=== PATIENT | male | born 1980 | race Caucasian/White ===

== ENCOUNTER 2017-10-10 14:31 | Inpatient (IN) ==
[2017-10-10] MEDS ORDERED: *HR* LORazepam 1 MG TABLET PO PRN (16:19)
[2017-10-10] MEDS ORDERED: Haloperidol Lactate 5 MG/ML VIAL IM PRN (16:19)
[2017-10-10] MEDS ORDERED: Mag Hydrox/Al Hydrox/Simeth 30 ML UDC PO PRN (16:19)
[2017-10-10] MEDS ORDERED: *HR* LORazepam 2 MG/ML VIAL IM PRN (16:19)
[2017-10-10] MEDS: Acetaminophen 325 MG TABLET PO PRN (18:27)
[2017-10-10] MEDS: traZODone 50 MG TABLET PO PRN (22:03)
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
[2017-10-11] MEDS: traZODone 50 MG TABLET PO PRN (23:08)
[2017-10-11] MEDS: hydrOXYzine pamoate 25 MG CAPSULE PO PRN (23:08)
--- NOTE | 2017-10-12 11:57 | Psychiatry Progress Note ---
Date of Encounter: 10/12/17 Time of Encounter: 11:30 Subjective Interval history: Patient is here for follow-up. Case discussed was nursing staff. Patient reports having headache, hearing voices without much details. Otherwise he is cooperative attending groups. He reports multiple somatic complaints and has been advised on seeking care for them including getting when necessary medication for headache. He denies any suicidal or homicidal ideation. 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 Benefits and side effects were discussed with the patient, he is agreeable to start. Risks, benefits, side effects, alternatives discussed w/pt: Yes Patient agreeable to treatment: Yes Consult Discharge Plan - Plan Referrals: [facility] [Other] (You are going into residential substance abuse treatment at [facility]. [facility] staff will arrange any follow- up physical and behavioral health appointments after you are admitted into the program.) Psychiatry Exam - Constitutional Vitals: Temp Pulse Resp BP 97.6 F 54 18 124/68 10/12/17 09:00 10/12/17 09:00 10/12/17 09:00 10/12/17 09:00 General appearance: age & developmentally appropriate, well-groomed, well- nourished, thin - Musculoskeletal Gait: normal Station: relaxed Strength & Tone: normal for patient - Psychiatric Patient Orientation: Yes Person, Yes Time, Yes Place Level of alertness: Alert Behavior: calm, cooperative, anxious, withdrawn Psychomotor activity: Slowed Eye Contact: Maintains Eye Contact Mood Description: Euthymic/stable, Anxious Affect description: congruent with mood, constricted Speech Volume: Normal Speech pattern: normal rate, normal rhythm, normal tone, fluent, spontaneous Language & Vocabulary: consistent with education Thought Process: Linear, Goal Oriented Thought Content: No Suicidal ideation, No Homicidal ideation, No Overt delusions Perceptual Disturbances: Yes Auditory hallucinations, No Visual hallucinations Attention Span Ability: Capable of Focused Attention Memory Description: Grossly Intact Patient Reliability: Reliable Historian Fund of knowledge: Yes abstraction ability, Yes aware of current events Intelligence Estimate: Average Judgment: Limited Insight: Partial
[2017-10-12] MEDS: traZODone 50 MG TABLET PO PRN (22:04)
[2017-10-12] MEDS: OLANZapine 5 MG TAB.RAPDIS PO SCH (22:04)
[2017-10-12] MEDS: hydrOXYzine pamoate 25 MG CAPSULE PO PRN (22:05)
[2017-10-13] MEDS: hydrOXYzine pamoate 25 MG CAPSULE PO PRN ×3 (08:30→21:40)
--- NOTE | 2017-10-13 11:24 | Psychiatry Progress Note ---
Date of Encounter: 10/13/17 Time of Encounter: 10:30 Subjective Interval history: Patient seen for follow-up. Case discussed was nursing staff. Patient tolerated new medication Zyprexa and reports no voices or auditory hallucination , he was able to sleep 6 hours. He attended groups and has been compliant and interacting with his peers and staff. He is occupied with multiple somatic complaints and repeatedly asking questions and getting advice and answers for the same question for example asking for headache he was advised to get when necessary medication for headache and if headache persists for extended time after discharge from the hospital that he needed to seek medical evaluation for his headache same instruction was given yesterday. He denied any suicidal ideation or auditory hallucinations, he denied any homicidal ideation. 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 [facility] staff will arrange any follow- up physical and behavioral health appointments after you are admitted into the program.) Psychiatry Exam - Constitutional Vitals: Temp Pulse Resp BP 97.5 F L 61 18 111/76 10/13/17 09:00 10/13/17 09:00 10/13/17 09:00 10/13/17 09:00 General appearance: age & developmentally appropriate, well-groomed, well- nourished, thin - Musculoskeletal Gait: normal Station: relaxed Strength & Tone: normal for patient - Psychiatric Patient Orientation: Yes Person, Yes Time, Yes Place Level of alertness: Alert Behavior: calm, cooperative, anxious Psychomotor activity: Normal Eye Contact: Fleeting Contact Mood Description: Euthymic/stable, Anxious Affect description: congruent with mood, constricted Speech Volume: Normal Speech pattern: normal rate, normal rhythm, normal tone, fluent, spontaneous Language & Vocabulary: consistent with education Thought Process: Linear, Goal Oriented Thought Content: No Suicidal ideation, No Homicidal ideation, No Overt delusions , Yes Preoccupation Perceptual Disturbances: No Auditory hallucinations, No Visual hallucinations Attention Span Ability: Capable of Focused Attention Memory Description: Grossly Intact Patient Reliability: Questionable Historian Fund of knowledge: Yes abstraction ability, Yes aware of current events Intelligence Estimate: Average Judgment: Limited Insight: Partial
[2017-10-13] MEDS: Acetaminophen 325 MG TABLET PO PRN (18:52)
[2017-10-13] MEDS: MOM Conc 10 ML UD.LIQ PO PRN (18:54)
[2017-10-13] MEDS: traZODone 50 MG TABLET PO PRN (21:38)
[2017-10-13] MEDS: OLANZapine 5 MG TAB.RAPDIS PO SCH (21:38)
[2017-10-14] MEDS: Acetaminophen 325 MG TABLET PO PRN (06:18)
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
[2017-10-14] MEDS: hydrOXYzine pamoate 25 MG CAPSULE PO PRN ×2 (14:47→21:57)
[2017-10-14] MEDS ORDERED: OLANZapine 5 MG TAB.RAPDIS PO SCH (18:00)
[2017-10-14] MEDS: OLANZapine 10 MG TAB.RAPDIS PO SCH (21:57)
[2017-10-14] MEDS: traZODone 50 MG TABLET PO PRN (21:57)
[2017-10-15] MEDS: hydrOXYzine pamoate 25 MG CAPSULE PO PRN ×2 (09:30→20:09)
[2017-10-15] MEDS ORDERED: OLANZapine 10 MG TAB.RAPDIS PO SCH (10:49)
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
[2017-10-16] MEDS: traZODone 50 MG TABLET PO PRN (02:07)
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
[2017-10-16] MEDS: hydrOXYzine pamoate 25 MG CAPSULE PO PRN (14:10)
[2017-10-16] MEDS: OLANZapine 10 MG TAB.RAPDIS PO SCH (20:05)
[2017-10-16] MEDS: Melatonin 3 MG TABLET PO SCH ×2 (22:11→22:21)
[2017-10-17] MEDS: hydrOXYzine pamoate 25 MG CAPSULE PO PRN (00:39)
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
[2017-10-17] MEDS: OLANZapine 10 MG TAB.RAPDIS PO SCH ×3 (20:58→22:20)
[2017-10-17] MEDS: Melatonin 3 MG TABLET PO SCH (20:59)
[2017-10-18] MEDS: hydrOXYzine pamoate 25 MG CAPSULE PO PRN ×3 (00:12→14:05)
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
[2017-10-18] MEDS: Melatonin 3 MG TABLET PO SCH (21:19)
[2017-10-18] MEDS: OLANZapine 10 MG TAB.RAPDIS PO SCH (21:20)
[2017-10-19] MEDS: hydrOXYzine pamoate 25 MG CAPSULE PO PRN ×2 (03:13→15:50)
--- NOTE | 2017-10-19 14:02 | Psychiatry Progress Note ---
Date of Encounter: 10/19/17 Time of Encounter: 11:30 Subjective Interval history: Patient discussed on rounds with mulltidisplinary treatment and nursing notes reviewed and noted. There were no behavioral issues or incident reported overnight. Patient seen in the day room and was calm and cooperative. He reported minimal improvement his symptoms. He continue to endorse AH though he reported significant improvement. . Patient also endorse worsening anxiety symptoms with difficulties in focusing. He is compliant with his medications and denied any side effects. . He denied prior trial with medications before his admission to the hospital.. He is sleeping and eating well. He denied any homicidal thoughts towards the mother and acknowledged his behavior were substance related. On review of symptoms, he denied other mood or psychotic symptoms including VH/HI/SI Review of Systems Constitutional: Denies: fever, chills, weakness, weight change Eyes: Denies: eye pain, vision change Ears, Nose, Throat: Denies: ear pain, throat pain, dental pain, hearing loss, congestion Cardiovascular: Denies: chest pain, palpitations, dyspnea on exertion Respiratory: Denies: cough, dyspnea, wheezes Gastrointestinal: Denies: abdominal pain, nausea, vomiting, diarrhea, constipation Musculoskeletal: Denies: joint swelling, joint pain Neurological: Denies: headache, weakness, numbness, memory loss Psychiatric: Reports: depression, anxiety, abnormal sleep pattern, auditory hallucinations Results - Vital Signs Vital Signs: Temp Pulse Resp BP Pulse Ox 98.2 F 90 16 106/68 98 10/19/17 09:00 10/19/17 09:00 10/19/17 09:00 10/19/17 09:00 10/16/17 19:49 Assessment and Plan (1) Polysubstance abuse Current visit: No Status: Acute (2) Suicidal ideation Current visit: No Status: Acute (3) Acute anxiety Current visit: No Status: Acute (4) Auditory hallucination Current visit: No Status: Acute Consult Discharge Plan - Plan Referrals: [facility] [Other] (You are going into residential substance abuse treatment at [facility]. [facility] staff will arrange any follow- up physical and behavioral health appointments after you are admitted into the program.) Psychiatry Exam - Constitutional Vitals: Temp Pulse Resp BP Pulse Ox 98.2 F 90 16 106/68 98 10/19/17 09:00 10/19/17 09:00 10/19/17 09:00 10/19/17 09:00 10/16/17 19:49 General appearance: age & developmentally appropriate, unkempt - Musculoskeletal Gait: slow - Psychiatric Patient Orientation: Yes Person, Yes Place, Yes Circumstance Level of alertness: Alert Behavior: calm, cooperative Psychomotor activity: Slowed Eye Contact: Maintains Eye Contact Mood Description: Euthymic/stable Affect description: congruent with mood Speech Volume: Soft/Quiet Speech pattern: coherent, slowed Language & Vocabulary: consistent with education Thought Process: Logical Thought Content: No Suicidal ideation, No Homicidal ideation, No Overt delusions Perceptual Disturbances: Yes Auditory hallucinations, Yes Visual hallucinations Attention Span Ability: Unable to Sustain Attention Memory Description: Immediate Impaired Patient Reliability: Reliable Historian Fund of knowledge: Yes average Intelligence Estimate: Average
[2017-10-19] MEDS: Melatonin 3 MG TABLET PO SCH (21:06)
[2017-10-19] MEDS: OLANZapine 10 MG TAB.RAPDIS PO SCH (21:07)
[2017-10-20] MEDS: hydrOXYzine pamoate 25 MG CAPSULE PO PRN ×3 (05:01→18:29)
--- NOTE | 2017-10-20 12:39 | Psychiatry Progress Note ---
Date of Encounter: 10/20/17 Time of Encounter: 12:29 Subjective Interval history: Patient discussed on rounds with mulltidisciplinary treatment and nursing notes reviewed and noted. There were no behavioral issues or incident reported overnight. Patient seen in the day room and was calm and cooperative. He reported minimal improvement his symptoms. He reported improvement in his anxiety with increase dose of Vistaril to 50mg prn. Reported he still hearing voices 'here and there'' but the intensity is much better. He is compliant with his medications and reported increase restlessness with it. He is sleeping and eating well. On review of symptoms, he denied other mood or psychotic symptoms including VH/SI/HI. Review of Systems Constitutional: Denies: fever, chills, weakness, weight change Eyes: Denies: eye pain, vision change Ears, Nose, Throat: Denies: ear pain, throat pain, dental pain, hearing loss, congestion Cardiovascular: Denies: chest pain, palpitations, dyspnea on exertion Respiratory: Denies: cough, dyspnea, wheezes Gastrointestinal: Denies: abdominal pain, nausea, vomiting, diarrhea, constipation Musculoskeletal: Denies: joint swelling, joint pain Neurological: Denies: headache, weakness, numbness, memory loss Psychiatric: Reports: anxiety, abnormal sleep pattern, auditory hallucinations Results - Vital Signs Vital Signs: Temp Pulse Resp BP Pulse Ox 97.7 F 96 18 123/83 98 10/20/17 09:00 10/20/17 09:00 10/20/17 09:00 10/20/17 09:00 10/16/17 19:49 Assessment and Plan (1) Polysubstance abuse Current visit: No Status: Acute (2) Suicidal ideation Current visit: No Status: Acute (3) Acute anxiety Current visit: No Status: Acute (4) Auditory hallucination Current visit: No Status: Acute Consult Discharge Plan - Plan Referrals: [facility] [Other] (You are going into residential substance abuse treatment at [facility]. [facility] staff will arrange any follow- up physical and behavioral health appointments after you are admitted into the program.) Psychiatry Exam - Constitutional Vitals: Temp Pulse Resp BP Pulse Ox 97.7 F 96 18 123/83 98 10/20/17 09:00 10/20/17 09:00 10/20/17 09:00 10/20/17 09:00 10/16/17 19:49 General appearance: unkempt - Musculoskeletal Gait: normal - Psychiatric Patient Orientation: Yes Time, Yes Place, Yes Circumstance Level of alertness: Alert Behavior: calm, cooperative Psychomotor activity: Normal Eye Contact: Maintains Eye Contact Mood Description: Euthymic/stable Affect description: congruent with mood Speech Volume: Normal Speech pattern: normal rate, normal rhythm, normal tone Language & Vocabulary: consistent with education Thought Process: Logical, Goal Oriented Thought Content: Yes Intact Perceptual Disturbances: Yes Auditory hallucinations Attention Span Ability: Capable of Focused Attention Memory Description: Grossly Intact Patient Reliability: Reliable Historian Fund of knowledge: Yes average Intelligence Estimate: Average Judgment: Limited Insight: Partial
[2017-10-20] MEDS: Melatonin 3 MG TABLET PO SCH (21:06)
[2017-10-20] MEDS: OLANZapine 10 MG TAB.RAPDIS PO SCH (21:07)
[2017-10-21] MEDS: hydrOXYzine pamoate 25 MG CAPSULE PO PRN ×3 (03:25→21:45)
[2017-10-21 08:19] LABS: Chol/HDL Ratio 3.3 (0-4.9)
--- NOTE | 2017-10-21 12:21 | Psychiatry Progress Note ---
Date of Encounter: 10/21/17 Time of Encounter: 11:45 Subjective Interval history: Patient seen today , chart reviewed and case d/w treatment team. h/o substance use and psychosis and affective s/s related to substance use. h/o non compliance and relapses secondary to that. I would like to say i am pretty good but i am not. i still voices and medicine helping very little, i am curious if we can do something. taking prn medications daily. sleep is not so good , i am up and down all night long , 2-3 hrs . moods have been up and down , suicidal thoughts are there sometimes and no plan. all this medicine doing nothing i feel. will add depakote 250 mg bid, lipid panel done today and has high cholesterol , will get hga1c patient agreed with plan denies side effects. Review of Systems Psychiatric: Reports: anxiety, abnormal sleep pattern, auditory hallucinations Results - Vital Signs Vital Signs: Temp Pulse Resp BP Pulse Ox 97.5 F L 72 18 113/74 98 10/21/17 09:00 10/21/17 09:00 10/21/17 09:00 10/21/17 09:00 10/16/17 19:49 - Labs Labs: Laboratory Results - last 24 hr 10/21/17 07:39 Glucose 88 Triglycerides 98 Cholesterol 231 H LDL Cholesterol, Calc 142 H VLDL Cholesterol, Calc 20 HDL Cholesterol 69 H Cholesterol/HDL Ratio 3.3 Assessment and Plan (1) Bipolar disorder, unspecified Current visit: Yes Status: Acute Plan: Continue hospitalization, Close observation, Suicide Precautions per unit protocol, Encourage participation in unit milieu, Group Therapy, Monitor sleep, Monitor appetite, Family/Supportive other meeting Risks, benefits, side effects, alternatives discussed w/pt: Yes Patient agreeable to treatment: Yes Qualifiers: Active/Remission status: currently active Current bipolar episode type: mixed Current episode severity: moderate Qualified Code(s): F31.62 - Bipolar disorder, current episode mixed, moderate (2) Suicidal ideation Current visit: No Status: Acute Plan: Continue hospitalization, Close observation, Suicide Precautions per unit protocol, Encourage participation in unit milieu, Group Therapy, Monitor sleep, Monitor appetite, Family/Supportive other meeting Risks, benefits, side effects, alternatives discussed w/pt: Yes Patient agreeable to treatment: Yes (3) 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. [facility] staff will arrange any follow- up physical and behavioral health appointments after you are admitted into the program.) Psychiatry Exam - Constitutional Vitals: Temp Pulse Resp BP Pulse Ox 97.5 F L 72 18 113/74 98 10/21/17 09:00 10/21/17 09:00 10/21/17 09:00 10/21/17 09:00 10/16/17 19:49 General appearance: age & developmentally appropriate - Musculoskeletal Gait: normal Station: other Strength & Tone: normal for patient - Psychiatric Patient Orientation: Yes Person, Yes Time, Yes Place Level of alertness: Alert Behavior: cooperative Psychomotor activity: Normal Eye Contact: Maintains Eye Contact Mood Description: Depressed, Anxious Affect description: congruent with mood Speech Volume: Normal Speech pattern: coherent Language & Vocabulary: consistent with education Thought Process: Circumstantial, Racing Thought Content: Yes Paranoid delusion Perceptual Disturbances: Yes Auditory hallucinations Attention Span Ability: Unable to Sustain Attention Memory Description: Grossly Intact Patient Reliability: Reliable Historian Fund of knowledge: Yes average Intelligence Estimate: Average Judgment: Limited Insight: Partial
[2017-10-21 14:54] LABS: Estimated Average Glucose 114 mg/dl; Hemoglobin A1C 5.6 %
[2017-10-21] MEDS: OLANZapine 10 MG TAB.RAPDIS PO SCH (21:11)
[2017-10-21] MEDS: Melatonin 3 MG TABLET PO SCH (21:11)
[2017-10-21] MEDS: Divalproex (12 HR) 250 MG TABLET PO SCH (21:11)
[2017-10-22] MEDS: Divalproex (12 HR) 250 MG TABLET PO SCH ×2 (08:45→21:22)
--- NOTE | 2017-10-22 10:42 | Psychiatry Progress Note ---
Date of Encounter: 10/22/17 Time of Encounter: 10:15 Subjective Interval history: Patient seen today, case d/w treatment team , mostly in his room and reading bible. I got some sleep last night , feeling voices are there but lesser in frequency and not commanding. feeling depress and anxious at same time as per him , has been taking vistaril prn. still remains depress, paranoid and aud. hallucination ,and increase anxiety. denies suicidal ideation , no hi. will add to treatment plan buspar 5 mg tid, patient agreed with plan. Review of Systems Psychiatric: Reports: anxiety, abnormal sleep pattern, auditory hallucinations Results - Vital Signs Vital Signs: Temp Pulse Resp BP Pulse Ox 97.4 F L 84 16 110/76 98 10/22/17 09:00 10/22/17 09:00 10/22/17 09:00 10/22/17 09:00 10/16/17 19:49 - Labs Labs: Laboratory Results - last 24 hr 10/21/17 13:42 Est Mean Plasma Glucose 114 Hemoglobin A1c 5.6 Assessment and Plan (1) Bipolar disorder, unspecified Current visit: Yes Status: Acute Risks, benefits, side effects, alternatives discussed w/pt: Yes Patient agreeable to treatment: Yes Qualifiers: Active/Remission status: currently active Current bipolar episode type: mixed Current episode severity: moderate Qualified Code(s): F31.62 - Bipolar disorder, current episode mixed, moderate (2) Suicidal ideation Current visit: No Status: Acute Risks, benefits, side effects, alternatives discussed w/pt: Yes Patient agreeable to treatment: Yes (3) 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 [facility] staff will arrange any follow- up physical and behavioral health appointments after you are admitted into the program.) Psychiatry Exam - Constitutional Vitals: Temp Pulse Resp BP Pulse Ox 97.4 F L 84 16 110/76 98 10/22/17 09:00 10/22/17 09:00 10/22/17 09:00 10/22/17 09:00 10/16/17 19:49 General appearance: age & developmentally appropriate - Musculoskeletal Gait: normal Station: other Strength & Tone: normal for patient - Psychiatric Patient Orientation: Yes Person, Yes Time, Yes Place Level of alertness: Alert Behavior: cooperative, nervous, anxious Psychomotor activity: Normal Eye Contact: Maintains Eye Contact Mood Description: Depressed, Anxious Affect description: congruent with mood Speech Volume: Normal Speech pattern: normal rate, normal rhythm, normal tone, fluent, spontaneous Language & Vocabulary: consistent with education Thought Process: Racing Thought Content: Yes Paranoid delusion, Yes Guilt Perceptual Disturbances: Yes Auditory hallucinations Attention Span Ability: Capable of Focused Attention Memory Description: Grossly Intact Patient Reliability: Reliable Historian Fund of knowledge: Yes abstraction ability, Yes aware of current events Intelligence Estimate: Average Judgment: Fair Insight: Partial
[2017-10-22] MEDS: OLANZapine 10 MG TAB.RAPDIS PO SCH (21:21)
[2017-10-22] MEDS: Melatonin 3 MG TABLET PO SCH (21:22)
[2017-10-22] MEDS: hydrOXYzine pamoate 25 MG CAPSULE PO PRN (23:49)
[2017-10-23] MEDS: Divalproex (12 HR) 250 MG TABLET PO SCH (09:06)
--- NOTE | 2017-10-23 11:54 | Psychiatry Progress Note ---
Date of Encounter: 10/23/17 Time of Encounter: 11:35 Subjective Interval history: Patient seen today , case d/w treatment team , patient did not sleep last night and had been pacing hallway and given prn medications which also did not help him much. at present feeling tired and feels down and paranoid , he states and. hallucinations are not as frequent . he still has some agitation. he denies any side effects , some dizziness in morning but has not been sleeping , his apetite is improving and he is compliant. he has h/o non compliance and education given. he still has cravings and plan is once stable to transfer to rehab inpatient. will dc doxepin 50 mg hs and start remeron 15 mg hs, also increase depakote to 500 mg bid and get levels. Review of Systems Psychiatric: Reports: anxiety, abnormal sleep pattern, auditory hallucinations Results - Vital Signs Vital Signs: Temp Pulse Resp BP Pulse Ox 98.7 F 88 16 112/73 98 10/23/17 09:00 10/23/17 09:00 10/23/17 09:00 10/23/17 09:00 10/16/17 19:49 Assessment and Plan (1) Bipolar disorder, unspecified Current visit: Yes Status: Acute Risks, benefits, side effects, alternatives discussed w/pt: Yes Patient agreeable to treatment: Yes Qualifiers: Active/Remission status: currently active Current bipolar episode type: mixed Current episode severity: moderate Qualified Code(s): F31.62 - Bipolar disorder, current episode mixed, moderate (2) Suicidal ideation Current visit: No Status: Acute Risks, benefits, side effects, alternatives discussed w/pt: Yes Patient agreeable to treatment: Yes (3) 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 [facility] staff will arrange any follow- up physical and behavioral health appointments after you are admitted into the program.) Psychiatry Exam - Constitutional Vitals: Temp Pulse Resp BP Pulse Ox 98.7 F 88 16 112/73 98 10/23/17 09:00 10/23/17 09:00 10/23/17 09:00 10/23/17 09:00 10/16/17 19:49 General appearance: age & developmentally appropriate - Musculoskeletal Gait: normal Station: relaxed Strength & Tone: normal for patient - Psychiatric Patient Orientation: Yes Person, Yes Time, Yes Place Level of alertness: Alert Behavior: cooperative, anxious Psychomotor activity: Normal Eye Contact: Minimal Contact Mood Description: Depressed, Anxious Affect description: congruent with mood Speech Volume: Soft/Quiet Speech pattern: coherent, slowed Language & Vocabulary: consistent with education Thought Process: Linear, Goal Oriented Thought Content: Yes Paranoid delusion Perceptual Disturbances: Yes Auditory hallucinations Attention Span Ability: Capable of Focused Attention Memory Description: Grossly Intact Patient Reliability: Reliable Historian Fund of knowledge: Yes abstraction ability, Yes aware of current events Intelligence Estimate: Average Judgment: Limited Insight: Partial
[2017-10-23] MEDS: Divalproex (12 HR) 500 MG TABLET PO SCH (21:36)
[2017-10-23] MEDS: Mirtazapine 15 MG TABLET PO SCH (21:36)
[2017-10-23] MEDS: Melatonin 3 MG TABLET PO SCH (21:36)
[2017-10-23] MEDS: OLANZapine 10 MG TAB.RAPDIS PO SCH (21:36)
[2017-10-24] MEDS: Divalproex (12 HR) 500 MG TABLET PO SCH ×2 (08:11→20:19)
--- NOTE | 2017-10-24 10:54 | Psychiatry Progress Note ---
Date of Encounter: 10/24/17 Time of Encounter: 10:45 Subjective Interval history: Patient seen today , case d/w treatment team . States doing better today , voices are not bothering him , paranoia still there , feels depress but not suicidal , not hopeless any more. he slept last night 5 hrs, getting better. anxiety is still high denies side effects , except constipation , rec to take prn milk of magnesia. start discharge planning. patient is homeless. Review of Systems Psychiatric: Reports: anxiety, abnormal sleep pattern, auditory hallucinations Results - Vital Signs Vital Signs: Temp Pulse Resp BP Pulse Ox 98.0 F 87 16 125/77 98 10/23/17 21:00 10/23/17 21:00 10/23/17 21:00 10/23/17 21:00 10/16/17 19:49 - Labs Labs: Laboratory Results - last 24 hr 10/24/17 07:30 Valproic Acid 58 Assessment and Plan (1) Bipolar disorder, unspecified Current visit: Yes Status: Acute Risks, benefits, side effects, alternatives discussed w/pt: Yes Patient agreeable to treatment: Yes Qualifiers: Active/Remission status: currently active Current bipolar episode type: mixed Current episode severity: moderate Qualified Code(s): F31.62 - Bipolar disorder, current episode mixed, moderate (2) Suicidal ideation Current visit: No Status: Acute Risks, benefits, side effects, alternatives discussed w/pt: Yes Patient agreeable to treatment: Yes (3) 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 [facility] staff will arrange any follow- up physical and behavioral health appointments after you are admitted into the program.) Psychiatry Exam - Constitutional Vitals: Temp Pulse Resp BP Pulse Ox 98.0 F 87 16 125/77 98 10/23/17 21:00 10/23/17 21:00 10/23/17 21:00 10/23/17 21:00 10/16/17 19:49 General appearance: age & developmentally appropriate, well-groomed, well- nourished - Musculoskeletal Gait: normal Station: relaxed Strength & Tone: normal for patient - Psychiatric Patient Orientation: Yes Person, Yes Time, Yes Place Level of alertness: Alert Behavior: anxious, restless Psychomotor activity: Normal Eye Contact: Maintains Eye Contact Mood Description: Depressed, Anxious Affect description: congruent with mood Speech Volume: Normal Speech pattern: coherent Language & Vocabulary: consistent with education Thought Content: Yes Paranoid delusion Perceptual Disturbances: Yes Auditory hallucinations Attention Span Ability: Capable of Focused Attention Memory Description: Grossly Intact Patient Reliability: Reliable Historian Fund of knowledge: Yes abstraction ability, Yes aware of current events Intelligence Estimate: Average Judgment: Limited Insight: Partial
[2017-10-24] MEDS: MOM Conc 10 ML UD.LIQ PO PRN (14:09)
[2017-10-24] MEDS: Mirtazapine 15 MG TABLET PO SCH (20:18)
[2017-10-24] MEDS: Melatonin 3 MG TABLET PO SCH (20:18)
[2017-10-24] MEDS: OLANZapine 10 MG TAB.RAPDIS PO SCH (20:20)
[2017-10-25] MEDS: Divalproex (12 HR) 500 MG TABLET PO SCH ×2 (09:25→21:59)
--- NOTE | 2017-10-25 11:45 | Psychiatry Progress Note ---
Date of Encounter: 10/25/17 Time of Encounter: 11:25 Subjective Interval history: Patient seen today , case d/w treatment team. He has improved and is compliant. he states colace helped his constipation and he feels better. moods are less depress, sometimes its more. denies a/v hallucination, states very few but still there do not bother him, no si/no hi , low grade paranoia. he has some cravings. denies side effects. Review of Systems Psychiatric: Reports: anxiety, abnormal sleep pattern, auditory hallucinations Results - Vital Signs Vital Signs: Temp Pulse Resp BP Pulse Ox 97.6 F 94 18 115/82 98 10/25/17 09:00 10/25/17 09:00 10/25/17 09:00 10/25/17 09:00 10/16/17 19:49 Assessment and Plan (1) Bipolar disorder, unspecified Current visit: Yes Status: Acute Plan: Continue hospitalization, Close observation, Suicide Precautions per unit protocol, Encourage participation in unit milieu, Group Therapy, Monitor sleep, Monitor appetite, Family/Supportive other meeting Risks, benefits, side effects, alternatives discussed w/pt: Yes Patient agreeable to treatment: Yes Qualifiers: Active/Remission status: currently active Current bipolar episode type: mixed Current episode severity: moderate Qualified Code(s): F31.62 - Bipolar disorder, current episode mixed, moderate (2) Suicidal ideation Current visit: No Status: Acute Plan: Continue hospitalization, Suicide Precautions per unit protocol, Encourage participation in unit milieu, Group Therapy, Monitor sleep, Monitor appetite Risks, benefits, side effects, alternatives discussed w/pt: Yes Patient agreeable to treatment: Yes (3) 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 [facility] staff will arrange any follow- up physical and behavioral health appointments after you are admitted into the program.) Psychiatry Exam - Constitutional Vitals: Temp Pulse Resp BP Pulse Ox 97.6 F 94 18 115/82 98 10/25/17 09:00 10/25/17 09:00 10/25/17 09:00 10/25/17 09:00 10/16/17 19:49 General appearance: age & developmentally appropriate, well-groomed, well- nourished - Musculoskeletal Gait: normal Station: relaxed Strength & Tone: normal for patient - Psychiatric Patient Orientation: Yes Person, Yes Time, Yes Place Level of alertness: Alert Behavior: cooperative, anxious Psychomotor activity: Slowed Eye Contact: Maintains Eye Contact Mood Description: Depressed, Anxious Affect description: congruent with mood Speech Volume: Normal Speech pattern: normal rate, normal rhythm, normal tone, fluent, spontaneous Language & Vocabulary: consistent with education Thought Process: Linear, Goal Oriented Thought Content: Yes Paranoid delusion Perceptual Disturbances: Yes Auditory hallucinations Memory Description: Grossly Intact Patient Reliability: Reliable Historian Fund of knowledge: Yes abstraction ability, Yes aware of current events Intelligence Estimate: Average Judgment: Limited Insight: Partial
[2017-10-25] MEDS: OLANZapine 10 MG TAB.RAPDIS PO SCH (21:58)
[2017-10-25] MEDS: Melatonin 3 MG TABLET PO SCH (21:59)
[2017-10-25] MEDS: Mirtazapine 15 MG TABLET PO SCH (21:59)
[2017-10-26] MEDS: Divalproex (12 HR) 500 MG TABLET PO SCH ×2 (09:38→21:10)
--- NOTE | 2017-10-26 11:47 | Psychiatry Progress Note ---
Date of Encounter: 10/26/17 Time of Encounter: 11:24 Subjective Interval history: Patient seen today , case d/w staff , still sleep issues and slept 4.5 hr. he is c/o constipation again today on colace . He remains anxious , tired and some psychosis, no si/hi Medication changes done decrease mirtazepam 7.5 mg and add doxepin 25 mg hs denies side effects except constipation. Review of Systems Psychiatric: Reports: anxiety, abnormal sleep pattern, auditory hallucinations Results - Vital Signs Vital Signs: Temp Pulse Resp BP Pulse Ox 97.5 F L 71 16 129/95 98 10/26/17 08:41 10/26/17 08:41 10/26/17 08:41 10/26/17 08:41 10/16/17 19:49 Assessment and Plan (1) Bipolar disorder, unspecified Current visit: Yes Status: Acute Plan: Continue hospitalization, Close observation, Suicide Precautions per unit protocol, Encourage participation in unit milieu, Group Therapy, Monitor sleep, Monitor appetite, Family/Supportive other meeting Risks, benefits, side effects, alternatives discussed w/pt: Yes Patient agreeable to treatment: Yes Qualifiers: Active/Remission status: currently active Current bipolar episode type: mixed Current episode severity: moderate Qualified Code(s): F31.62 - Bipolar disorder, current episode mixed, moderate (2) Suicidal ideation Current visit: No Status: Acute Plan: Continue hospitalization, Close observation, Suicide Precautions per unit protocol, Encourage participation in unit milieu, Group Therapy, Monitor sleep, Monitor appetite, Family/Supportive other meeting Risks, benefits, side effects, alternatives discussed w/pt: Yes Patient agreeable to treatment: Yes (3) 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 [facility] staff will arrange any follow- up physical and behavioral health appointments after you are admitted into the program.) Psychiatry Exam - Constitutional Vitals: Temp Pulse Resp BP Pulse Ox 97.5 F L 71 16 129/95 98 10/26/17 08:41 10/26/17 08:41 10/26/17 08:41 10/26/17 08:41 10/16/17 19:49 General appearance: age & developmentally appropriate - Musculoskeletal Gait: normal Station: relaxed Strength & Tone: normal for patient - Psychiatric Patient Orientation: Yes Person, Yes Time, Yes Place Level of alertness: Alert Behavior: cooperative, anxious Psychomotor activity: Normal Eye Contact: Minimal Contact Mood Description: Depressed, Anxious Affect description: congruent with mood, full range Speech Volume: Soft/Quiet Speech pattern: normal rate, normal rhythm, normal tone, fluent, spontaneous Language & Vocabulary: consistent with education Thought Process: Logical Thought Content: Yes Paranoid delusion Perceptual Disturbances: Yes Auditory hallucinations Attention Span Ability: Capable of Focused Attention Memory Description: Grossly Intact Patient Reliability: Reliable Historian Fund of knowledge: Yes abstraction ability, Yes aware of current events Intelligence Estimate: Average Judgment: Limited Insight: Partial
[2017-10-26] MEDS: Melatonin 3 MG TABLET PO SCH (21:10)
[2017-10-26] MEDS: OLANZapine 10 MG TAB.RAPDIS PO SCH (21:11)
[2017-10-26] MEDS: Mirtazapine 15 MG TABLET PO SCH (21:11)
[2017-10-27] MEDS: Divalproex (12 HR) 500 MG TABLET PO SCH ×2 (08:32→21:36)
--- NOTE | 2017-10-27 11:38 | Psychiatry Progress Note ---
Date of Encounter: 10/27/17 Time of Encounter: 11:10 Subjective Interval history: Patient seen today , case d/w staff . states yesterday had some SOB and chest tightness but drank water and it was better, had panic attack , he is better today , not sleeping well as per him because he had to go to rest room , his constipation is relieved now and he feels better, he had rash last night and given benadryl 50 mg , he still has mild rash will dc doxepin which was started last. not suicidal/homicidal. Review of Systems Psychiatric: Reports: anxiety, abnormal sleep pattern, auditory hallucinations Results - Vital Signs Vital Signs: Temp Pulse Resp BP Pulse Ox 98.5 F 76 16 130/90 98 10/26/17 20:58 10/27/17 08:57 10/27/17 08:57 10/27/17 08:57 10/16/17 19:49 Assessment and Plan (1) Bipolar disorder, unspecified Current visit: Yes Status: Acute Plan: Continue hospitalization, Close observation, Suicide Precautions per unit protocol, Encourage participation in unit milieu, Group Therapy, Monitor sleep, Monitor appetite, Family/Supportive other meeting Risks, benefits, side effects, alternatives discussed w/pt: Yes Patient agreeable to treatment: Yes Qualifiers: Active/Remission status: currently active Current bipolar episode type: mixed Current episode severity: moderate Qualified Code(s): F31.62 - Bipolar disorder, current episode mixed, moderate (2) Suicidal ideation Current visit: No Status: Acute Risks, benefits, side effects, alternatives discussed w/pt: Yes Patient agreeable to treatment: Yes (3) 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 [facility] staff will arrange any follow- up physical and behavioral health appointments after you are admitted into the program.) Psychiatry Exam - Constitutional Vitals: Temp Pulse Resp BP Pulse Ox 98.5 F 76 16 130/90 98 10/26/17 20:58 10/27/17 08:57 10/27/17 08:57 10/27/17 08:57 10/16/17 19:49 General appearance: age & developmentally appropriate, well-groomed, well- nourished - Musculoskeletal Gait: normal Station: relaxed Strength & Tone: normal for patient - Psychiatric Patient Orientation: Yes Person, Yes Time, Yes Place Level of alertness: Alert Behavior: calm, cooperative Psychomotor activity: Normal Eye Contact: Maintains Eye Contact Mood Description: Depressed, Anxious Affect description: congruent with mood, full range Speech Volume: Normal Speech pattern: normal rate, normal rhythm, normal tone, fluent, spontaneous Language & Vocabulary: consistent with education Thought Process: Linear, Goal Oriented Thought Content: No Suicidal ideation, No Homicidal ideation, No Overt delusions , Yes Paranoid delusion Perceptual Disturbances: No Auditory hallucinations, No Visual hallucinations Attention Span Ability: Capable of Focused Attention Memory Description: Grossly Intact Patient Reliability: Reliable Historian Fund of knowledge: Yes abstraction ability, Yes aware of current events Judgment: Limited Insight: Partial
[2017-10-27] MEDS: hydrOXYzine pamoate 25 MG CAPSULE PO PRN (21:36)
[2017-10-27] MEDS: Melatonin 3 MG TABLET PO SCH (21:37)
[2017-10-27] MEDS: Mirtazapine 15 MG TABLET PO SCH (21:37)
[2017-10-27] MEDS: OLANZapine 10 MG TAB.RAPDIS PO SCH (21:39)
[2017-10-28] MEDS: Divalproex (12 HR) 500 MG TABLET PO SCH (08:54)
[2017-10-28 09:24] VITALS: BP 115/78
--- NOTE | 2017-10-28 10:28 | Discharge Summary ---
Date of Encounter: 10/28/17 Time of Encounter: 10:10 Diagnosis - Discharge Diagnosis (1) Bipolar disorder, unspecified Status: Acute Comments: Patient improved in his mood instability, suicidal ideation , psychosis. Qualifiers: Active/Remission status: currently active Current bipolar episode type: mixed Current episode severity: moderate Qualified Code(s): F31.62 - Bipolar disorder, current episode mixed, moderate (2) Suicidal ideation Status: Resolved Comments: patient not in imenent danger to self/others. 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 Melatonin 3 mg PO HS #30 tablet Mirtazapine [Remeron] 7.5 mg PO HS #30 tablet OLANZapine [Zyprexa Zydis] 20 mg PO HS #30 tab.rapdis Benztropine [Cogentin] 1 mg PO BID #60 tablet 10/28/17 [Rx] Buspirone HCl [Buspar] 5 mg PO TID #90 tablet 10/28/17 [Rx] Divalproex (12 HR) [Depakote (12 HR)] 500 mg PO BID #60 tablet. 10/28/17 [Rx] Melatonin 3 mg PO HS #30 tablet 10/28/17 [Rx] Mirtazapine [Remeron] 7.5 mg PO HS #30 tablet 10/28/17 [Rx] OLANZapine [Zyprexa Zydis] 20 mg PO HS #30 tab.rapdis 10/28/17 [Rx] 3 Allergy/AdvReac Type Severity Reaction Status Date / Time bupropion [From Wellbutrin] AdvReac Agitated Verified 10/11/17 11:02 Results Procedures and tests throughout hospitalization: Completed Lab Orders Category Date Time Status Glucose Routine Lab 10/21/17 07:39 Completed Hgb A1C Routine Lab 10/21/17 13:42 Completed Lipid Panel Routine Lab 10/21/17 07:39 Completed Valproate AM 0400 Lab 10/24/17 07:30 Completed Provider Date of admission: 10/10/17 14:31 Primary care physician: PCP NONE Psychiatry Exam - Constitutional Vitals: Temp Pulse Resp BP Pulse Ox 97.7 F 81 18 115/78 98 10/28/17 09:00 10/28/17 09:00 10/28/17 09:00 10/28/17 09:00 10/16/17 19:49 General appearance: age & developmentally appropriate - Musculoskeletal Gait: normal Station: relaxed Strength & Tone: normal for patient - Psychiatric Patient Orientation: Yes Person, Yes Time, Yes Place Level of alertness: Alert Behavior: calm, cooperative Psychomotor activity: Normal Eye Contact: Maintains Eye Contact Mood Description: Anxious Affect description: congruent with mood, full range Speech Volume: Normal Speech pattern: clear, coherent Language & Vocabulary: consistent with education Thought Process: Linear, Goal Oriented Thought Content: Yes Paranoid delusion Perceptual Disturbances: No Auditory hallucinations, No Visual hallucinations Attention Span Ability: Capable of Focused Attention Memory Description: Grossly Intact Patient Reliability: Reliable Historian Intelligence Estimate: Average Judgment: Fair Insight: Partial Hospital Course Hospital course: Mr. Uribe is a 37 year old male admitted voluntarily from the medical service after medical stabilization for rhabdomyolysis, kidney failure, toxic encephalopathy. Patient was seen in consultation on October 05 by psychiatry and was diagnosed with substance-induced psychosis and polysubstance abuse and dependence including alcohol, methamphetamine, opiates, THC and benzodiazepine. Patient denies any previous mental health's treatment or medication. He confirmed that he has been using several drugs for many years starting at age 16 and never had any professional help or treatment. Prior to admission he had fights with his stepfather and on admission the hospital he was reporting hearing voices and having homicidal thoughts towards his stepfather. During course of hospitalization he was started on medications and structure enviornment provided for his safety , he had hallucinations telling him his stepfather did something to his kids and therefore he wanted to hurt him , he took OD on multiple drugs and states i took effexor for 30 days which he got from [employer].and then stopped as felt good then went down the hill. he was started on Olanzapine , depakote and remeron and buspar , he showed improvement and his psychosis improved , he still has some low grade paranoia, and anxiety but not depress, no si,no hi. he denies auditory hallucination on discharge. patient had rash doxepin was dc and rash was resolved with benadryl. he denies any side effects at present will be going to inpatient rehab , with follow up. Time spent discussing smoking cessation with patient: 3 to 10 minutes Does patient wish to continue nicotine replacement upon disc: No (patient since here has not smoked and not used nicotine patch.) - Time Spent with Patient Total time spent providing and/or coordinating discharge services: Greater than 30 minutes Assessment and Plan - Patient/Caregiver Discharge Instructions Activity: resume usual activities as tolerated Diet: regular diet - Follow up Plan Follow up with: [facility] [Other] (You are going into residential substance abuse treatment at [facility]. [facility] staff will arrange any follow- up physical and behavioral health appointments after you are admitted into the program.) Overall status at discharge: Stable Disposition: Transfer Inpatient Rehab Fac Quality - Multiple Antipsychotics Patient discharged on 2 or more antipsychotic medications: No Procedures - Procedures Procedures: Medication Management, Crisis Stabilization, Supportive Therapy, Group Therapy (patient partipated in unit milieu and showed improvement.), Psychoeducational Therapy
== END 2017-10-28 12:04 | DRG 753 ==
LOC: SUATTDRO 14:31 → 1ANU 14:31
PROVIDERS: ADMIT Psychiatry & Neurology Psychiatry; ATTEND Psychiatry & Neurology Psychiatry

== ENCOUNTER 2018-10-11 12:05 | Inpatient (IN) ==
--- NOTE | 2018-10-11 12:10 | Emergency Department Note ---
Disposition Clinical Impression: Auditory hallucination, Multiple personality disorder Disposition: Admitted As Inpatient Condition: Good General Adult HPI - General Stated complaint: psych Time Seen by Provider: 10/11/18 12:08 - Related Data Home Medications Medication Instructions Recorded Confirmed RX: No Known Home Drugs 10/11/18 10/11/18 Allergies Allergy/AdvReac Type Severity Reaction Status Date / Time bupropion [From Wellbutrin] AdvReac Agitated Verified 10/11/17 11:02 Past Medical History - Past Medical History Medical history: Reports: non-contributory Surgical history: Reports: no surgical history Psychiatric history: Reports: other - Social History Smoking Status: Current some day smoker Smokeless Tobacco Status: No Alcohol use: Reports: occasionally Drug use: Reports: cocaine, opiates, marijuana, methamphetamine, prescription drug abuse, other Course Vital Signs Temperature 98.1 F 10/11/18 12:09 Pulse Rate 76 10/11/18 12:09 Respiratory Rate 16 10/11/18 12:09 Blood Pressure 128/92 10/11/18 12:09 O2 Sat by Pulse Oximetry 100 10/11/18 12:09 Temperature 98.1 F 10/11/18 12:09 Pulse Rate 76 10/11/18 12:09 Respiratory Rate 16 10/11/18 12:09 Blood Pressure 128/92 10/11/18 12:09 O2 Sat by Pulse Oximetry 100 10/11/18 12:09 Oxygen Delivery Oxygen Delivery Room Air Medical Decision Making - Lab Data Lab Results 10/11/18 10/11/18 Range/Units 12:25 13:28 Ethyl Alcohol 86 H 53 H (Less than 10) mg/dL Attestation Statement - Attestation Attestation: I examined this patient and my medical decision-making was reviewed with the Resident Physician. I agree with the documented findings, disposition and treatment plan as described except to the extent set forth below. [id number] time provided Patient arrives from an outside facility for mental health evaluation. The patient appears in no acute distress. He admits to a past use of methamphetamine but not recently. I did review the labs from the outside facility and see that his blood alcohol level is greater than 120. This will be repeated. Once his blood alcohol level is appropriate we will have the patient evaluated by the mental health team. There were no procedures performed by which my presence, supervision, or attestation were necessary for this visit
--- NOTE | 2018-10-11 12:15 | Emergency Department Note ---
Disposition Clinical Impression: Auditory hallucination, Multiple personality disorder Disposition: Admitted As Inpatient Condition: Good Referrals: NONE,PCP [Primary Care Provider] - Forms: ED Satisfaction Letter Time of Disposition: 15:47 (Admitted to 1A) Psych HPI - General Chief Complaint: ED Psychiatric Symptoms Stated Complaint: psych Time Seen by Provider: 10/11/18 12:08 Source: patient, EMS Mode of arrival: EMS Limitations: other (psych) Nursing Notes Reviewed: Yes Vital Signs Reviewed: Yes - History of Present Illness HPI Narrative: Patient is a 38-year-old male with past medical history of multiple personality disorder, possible schizophrenia. States that he was seen and evaluated about a year ago due to hearing voices and having multiple personalities. He states that he was placed on medication but has since taken himself off because he does not want to take these medications. Denies any current suicidal or homicidal thoughts. He admits to auditory hallucinations. When asked what the voices are telling him, he states that he has been told "top secret information about a girl" and cannot tell anything else other than that. He denies any other drug use. He does admit to alcohol use. States that he drinks 2-3 beers this morning. Denies any other somatic complaints of chest pain, shortness breath, nausea, vomiting, fevers, diarrhea, abdominal pain. According to previous noting, patient was found this morning by his mother and was trying to tear drywall from the ceiling and huber. His mother called EMS. Patient had medical clearance labs performed at [facility]. He had an alcohol level of 127. Otherwise, the rest of the medical clearance labs were benign. Sent here for further care and 1A collinal. [place] slip signed and in place upon transfer. - Related Data Home Medications Medication Instructions Recorded Confirmed No Known Home Drugs 10/11/18 10/11/18 Allergies Allergy/AdvReac Type Severity Reaction Status Date / Time bupropion [From Wellbutrin] AdvReac Agitated Verified 10/11/17 11:02 All systems ED: reviewed and negative except as stated. Constitutional: Denies: fever Cardiovascular: Denies: chest pain Respiratory: Denies: dyspnea Gastrointestinal: Denies: abdominal pain, nausea, vomiting, diarrhea Psychiatric: Reports: auditory hallucinations. Denies: suicidal thoughts, homicidal thoughts, visual hallucinations Past Medical History - Past Medical History Attestation: Yes The following information was validated with the patient. Source: patient Medical history: Reports: non-contributory Surgical history: Reports: no surgical history Psychiatric history: Reports: other - Social History Smoking Status: Current some day smoker Smokeless Tobacco Status: No Alcohol use: Reports: occasionally Drug use: Reports: cocaine, opiates, marijuana, methamphetamine, prescription drug abuse, other Physical Exam - General General appearance: alert, in no apparent distress - Head Head exam: atraumatic, normocephalic, normal inspection - Eye Eye exam: Present: normal appearance, PERRL, EOMI - ENT ENT exam: normal exam, normal oropharynx, mucous membranes moist - Neck Neck exam: Present: normal inspection, full ROM, trachea midline - Chest Chest inspection: Present: normal inspection, symmetric chest wall rise - Respiratory Respiratory exam: Present: normal lung sounds bilaterally. Absent: respiratory distress, wheezes, stridor, accessory muscle use - Cardiovascular Cardiovascular exam: Present: regular rate, normal rhythm, normal heart sounds - Abdominal Exam Abdominal exam: Present: soft, Non-Tender. Absent: tenderness, distention, guarding, rebound, rigidity Abdominal tenderness: Absent: RUQ, RLQ, LUQ, LLQ - Extremities Exam Extremities exam: Present: normal inspection, full ROM. Absent: tenderness, pedal edema - Neurological Exam Neurological exam: Present: alert, oriented X3. Absent: motor sensory deficit - Expanded Neurological Exam Coma Scale Eye Opening: Spontaneous Coma Scale Motor Response: Obeys Commands Coma Scale Verbal Response: Oriented Coma Scale Total: 15 - Psychiatric Psychiatric exam: Present: flat affect, other (switching between accents during exam, states he hears voices and appears mildly paranoid). Absent: homicidal ideation, suicidal ideation - Skin Skin exam: Present: warm, dry, intact, normal color Course Course Narrative: Vitals stable. Physical exam shows a mildly paranoid patient that is switching between accident. He has active auditory hallucinations. Denies any other suicidal, homicidal thoughts or visual hallucinations. The rest of the physical exam was benign. Patient had medical clearance labs performed at [facility]. He had an alcohol level of 127 and urine was positive for marijauna. K was 3.2 and will replace here with oral potassium. Otherwise, the rest of the medical clearance labs were benign. Sent here for further care and 1A eval. [place] slip signed and in place upon transfer. Sitter will be placed. We will repeat alcohol level. Once alcohol level is less than 80, will consult behavioral health for further evaluation. 13:24 repeat alcohol 86. I talked with 1A, they will call in a nurse for evaluation. We will go ahead and repeat alcohol level now to see if it is less than 80 as it has now been approximately an hour after first collection. 15:46 alcohol level less than 80 on repeat draw. Behavioral health nurse has evaluated the patient and discussed the patient with psychiatrist. They do believe the patient needs admitted at this time. We will proceed with admission to for further care. Patient has pink slip signed and a sitter in place, all belongings have been bagged and taken from patient. Vital Signs Temperature 98.1 F 10/11/18 12:09 Pulse Rate 76 10/11/18 12:09 Respiratory Rate 16 10/11/18 12:09 Blood Pressure 128/92 10/11/18 12:09 O2 Sat by Pulse Oximetry 100 10/11/18 12:09 Temperature 98.1 F 10/11/18 12:09 Pulse Rate 76 10/11/18 12:09 Respiratory Rate 16 10/11/18 12:09 Blood Pressure 128/92 10/11/18 12:09 O2 Sat by Pulse Oximetry 100 10/11/18 12:09 Oxygen Delivery Oxygen Delivery Room Air Psych - MDM Narrative Medical decision making narrative: Vitals stable. Physical exam shows a mildly paranoid patient that is switching between accident. He has active auditory hallucinations. Denies any other suicidal, homicidal thoughts or visual hallucinations. The rest of the physical exam was benign. Patient had medical clearance labs performed at [facility]. He had an alcohol level of 127 and urine was positive for marijauna. K was 3.2 and will replace here with oral potassium. Otherwise, the rest of the medical clearance labs were benign. Sent here for further care and eval. [place] slip signed and in place upon transfer. Sitter will be placed. We will repeat alcohol level. Once alcohol level is less than 80, will consult behavioral health for further evaluation. 13:24 repeat alcohol 86. I talked with 1A, they will call in a nurse for evaluation. We will go ahead and repeat alcohol level now to see if it is less than 80 as it has now been approximately an hour after first collection. 15:46 alcohol level less than 80 on repeat draw. Behavioral health nurse has evaluated the patient and discussed the patient with psychiatrist. They do believe the patient needs admitted at this time. We will proceed with admission to for further care. Patient has pink slip signed and a sitter in place, all belongings have been bagged and taken from patient. - Lab Data Lab results reviewed: Yes I reviewed the patient's lab results. Lab Results 10/11/18 10/11/18 Range/Units 12:25 13:28 Ethyl Alcohol 86 H 53 H (Less than 10) mg/dL Psychiatric Medical Clearance - Medical Clearance Checklist Medical History: No Social History Section defined Current Vitals: Last Vital Signs Temp 98.1 F 10/11/18 12:09 Pulse 76 10/11/18 12:09 Resp 16 10/11/18 12:09 BP 128/92 10/11/18 12:09 Pulse Ox 100 10/11/18 12:09 Psychiatric Lab Panel: Drug Levels and Toxicity 10/11/18 10/11/18 12:25 13:28 Ethyl Alcohol 86 H 53 H Abnormal Labs: Abnormal lab results Ethyl Alcohol 53 mg/dL (Less than 10) H 10/11/18 13:28 Statement of Medical Clearance: I have evaluated the patient, reviewed diagnostic information, and certify that the patient's medical condition is sufficiently stable that transfer to the psychiatric unit does not pose a significant risk of deterioration.
[2018-10-11] MEDS ORDERED: Potassium Chloride Elixir 20 MEQ/15 ML UDC PO ONE (12:22)
[2018-10-11] MEDS ORDERED: hydrOXYzine pamoate 25 MG CAPSULE PO ONE (12:25)
[2018-10-11] MEDS ORDERED: Mag Hydrox/Al Hydrox/Simeth 30 ML UDC PO PRN (16:02)
[2018-10-11] MEDS ORDERED: Haloperidol Lactate 5 MG/ML VIAL IM PRN (16:02)
[2018-10-11] MEDS ORDERED: *HR* LORazepam 1 MG TABLET PO PRN (16:02)
[2018-10-11] MEDS ORDERED: MOM Conc 10 ML UD.LIQ PO PRN (16:02)
[2018-10-11] MEDS ORDERED: Ibuprofen 400 MG TABLET PO PRN (16:02)
[2018-10-11] MEDS ORDERED: *HR* LORazepam 2 MG/ML VIAL IM PRN (16:02)
[2018-10-11] MEDS ORDERED: Nicotine 2 MG GUM BC PRN (17:12)
[2018-10-11] MEDS: traZODone 50 MG TABLET PO PRN (21:01)
[2018-10-11] MEDS: hydrOXYzine pamoate 25 MG CAPSULE PO PRN (21:01)
--- NOTE | 2018-10-12 10:51 | Psychiatry History & Physical ---
Date of Encounter: 10/12/18 Time of Encounter: 10:41 History of Present Illness Patient Stated Chief Complaint: psychosis Medicare Admission Attestation: For traditional Medicare patients the provided hospital inpatient services are reasonable and necessary and in the case of services not specified as inpatient-only under 42 CFR 419.22 (n), that they are appropriately provided as inpatient services in accordance 42 CFR 412.3. For Critical Access Hospital the patient may reasonably be expected to be discharged or transferred to a hospital within 96 hours after admission to the Critical Access Hospital. Admitted From: Home Plans for Post Hospital Care: Home History of Present Illness: Mr. Uribe is a 38 year old male who was admitted secondary to psychosis. Mother called EMS because client was ripping the drywall off the ceiling and huber in her home. On eval client is pleasant but admits to visual hallucinations and auditory hallucinations that he reports are non-command in n ature. Experienced similar symptoms once before and was admitted to in September of last year. Was not accepting of diagnosis at that time and stopped all meds/treatment once he was discharged. Much more accepting of needing treatment now. States he was diagnosed with Schizophrenia at that time and he had a lengthy admission during which several meds were started including Zyprexa, Depakote, Remeron, Buspar, and Cogentin. Client states he has a maternal uncle with Schizophrenia but he is unaware of any other mental illnesses in family members. Client reports he is physically healthy. Self-medicating with alcohol and THC. No signs/symptoms of withdrawal. Has used meth in the past but denies any use since prior to his last admission. Client endorses depressed mood but denies SI, intent, or plan. Admits he has experienced SI in the past but denies any history of attempts. According to staff he has been paranoid and withdrawn to his room since arriving on the unit. On exam today he is not overtly paranoid but he has recently exhibited paranoid behaviors in the home where he lives with his mother, father, and brother. His thoughts are linear. Willing to restart Zyprexa. Will start with this medication alone and see if last med regimen can be streamlined to help with compliance. Cogentin will be available as a prn. Risks, benefits, and side effects discussed. Past Med Surg Social Fam HX - Past Medical History Medical history: non-contributory - Past Psychiatric History Psychiatric history: Reports: schizophrenia, previous psychiatric hospitalization Family psychiatric history: Yes Family Psychiatric History Details: maternal uncle-schizophrenia Family History of Suicide: Unknown - Past Surgical History Surgical History: no surgical history - Social History Smoking Status: Current some day smoker Smokeless Tobacco Status: No Alcohol use: occasionally Drug use: cocaine, opiates, marijuana, methamphetamine, prescription drug abuse, other - Family History Mother Adopted: [place]: Yudith Age: 55 Living Status: Still Living Hx Family Cardiac Disorders: No Hx Family Respiratory Disorders: No Hx Family Cancer: No Hx Family GI Disorders: No Hx Family Genitourinary Disorders: No Hx Family Endocrine Disorder: No Hx Family Musculoskeletal Disorders: No Hx Family Neuromuscular Disorders: No Hx Family Neurologic Disorders: No Hx Family HEENT Disorders: No Hx Family Autoimmune Disorders: No Hx Family Reproductive Disorders: No Hx Family Psychosocial Disorders: No Hx Family Medical Disorders: No Medications & Allergies No Known Home Drugs 10/11/18 [History] Allergy/AdvReac Type Severity Reaction Status Date / Time bupropion [From Wellbutrin] AdvReac See Verified 10/12/18 10:44 Comments Review of Systems Constitutional: Denies: fever, chills, weakness, weight change Eyes: Denies: eye pain, vision change Ears, Nose, Throat: Denies: ear pain, throat pain, dental pain, hearing loss, congestion Cardiovascular: Denies: chest pain, palpitations, dyspnea on exertion Respiratory: Denies: cough, dyspnea, wheezes Gastrointestinal: Denies: abdominal pain, nausea, vomiting, diarrhea, constipation Genitourinary male: Denies: urgency, dysuria, frequency, genital lesions Musculoskeletal: Denies: joint swelling, joint pain Integumentary: Denies: rash, lesions, pruritus Neurological: Denies: headache, weakness, numbness, memory loss Endocrine: Denies: fatigue, heat or cold intolerance Hematologic/Lymphatic: Denies: easy bruising, lymphadenopathy Allergic/Immunologic: Denies: urticaria, itchy eyes Exam - HEENT Head exam IM: Present: atraumatic Eye exam IM: Present: EOMI, normal appearance, PERRL ENT exam IM: Present: normal exam - Neurological Neurological exam: Present: CN II-XII intact - Respiratory Respiratory exam IM: Present: CTAB - GI/Abdominal GI/Abdominal exam IM: Present: normal bowel sounds, soft. Absent: tenderness - Extremities Extremities exam IM: Present: full ROM - Skin Skin exam IM: Present: dry, warm - Constitutional Vitals: Temp Pulse Resp BP Pulse Ox 97.4 F L 50 18 132/84 98 10/11/18 20:24 10/11/18 20:24 10/11/18 20:24 10/11/18 20:24 10/11/18 20:24 General appearance: age & developmentally appropriate, well-groomed, well- nourished - Musculoskeletal Gait: normal Station: relaxed Strength & Tone: normal for patient - Psychiatric Patient Orientation: Yes Person, Yes Time, Yes Place Level of alertness: Alert Behavior: calm, cooperative Psychomotor activity: Normal Eye Contact: Maintains Eye Contact Mood Description: Depressed, Anxious Affect description: blunted Speech Volume: Normal Speech pattern: normal rate, normal rhythm, normal tone, fluent, spontaneous Language & Vocabulary: consistent with education Thought Process: Linear Thought Content: No Suicidal ideation, No Homicidal ideation, Yes Paranoid delusion Perceptual Disturbances: Yes Auditory hallucinations, Yes Visual hallucinations Attention Span Ability: Capable of Focused Attention Memory Description: Grossly Intact Patient Reliability: Reliable Historian Fund of knowledge: Yes abstraction ability, Yes average, Yes aware of current events Intelligence Estimate: Average Judgment: Limited Insight: Partial Results - Drug Levels and Toxicology Drug Levels and Toxicology: Drug Levels and Toxicity 10/11/18 10/11/18 12:25 13:28 Ethyl Alcohol 86 H 53 H - Labs Labs: Laboratory Last Values Ethyl Alcohol 53 mg/dL (Less than 10) H 10/11/18 13:28 Assessment and Plan (1) Schizophrenia Current visit: Yes Status: Acute Plan: Admit inpatient for safety and stabilization, Close observation, Suicide Precautions per unit protocol, Encourage participation in unit milieu, Group Therapy, Monitor sleep, Monitor appetite Risks, benefits, side effects, alternatives discussed w/pt: Yes Patient agreeable to treatment: Yes Plans for Post Hospital Care: Home Estimated Length of Stay (Days): 7 Qualifiers: Schizophrenia type: unspecified Qualified Code(s): F20.9 - Schizophrenia, unspecified (2) Alcohol abuse Current visit: Yes Status: Acute Plan: Admit inpatient for safety and stabilization, Close observation, Suicide Precautions per unit protocol, Encourage participation in unit milieu, Group Therapy, Monitor sleep, Monitor appetite Risks, benefits, side effects, alternatives discussed w/pt: Yes Patient agreeable to treatment: Yes Plans for Post Hospital Care: Home Estimated Length of Stay (Days): 7
[2018-10-12] MEDS: hydrOXYzine pamoate 25 MG CAPSULE PO PRN (20:46)
[2018-10-12] MEDS: OLANZapine 10 MG TAB.RAPDIS PO SCH (20:46)
[2018-10-12] MEDS: traZODone 50 MG TABLET PO PRN (20:46)
[2018-10-13] MEDS: hydrOXYzine pamoate 25 MG CAPSULE PO PRN ×2 (09:43→21:24)
--- NOTE | 2018-10-13 10:50 | Psychiatry Progress Note ---
Date of Encounter: 10/13/18 Time of Encounter: 10:00 Subjective Interval history: Mr. Uribe is a 38 year old male with a history of schizophrenia who was admitted with auditory hallucinations of a woman in his attic. Apparently, he started to rip the drywall over the huber and ceiling. Patient states that the woman's voice is actually the voice of his ex-girlfriend and that he has been hearing her voice daily since they broke up in August. He states that it is a very quiet voice, similar to the intensity of a fan in the background. She states that the voice does have commands, but not to hurt himself. He reports that he last heard the voice yesterday. Denies visual hallucinations. States that he had fleeting suicidal ideation without a plan this morning. Denies homicidal ideation. Patient denies any problems with his sleep and appetite. Denies any physical pain. States that he has had a side effect of drowsiness. He rates his current depression level as 2-3/10 on a 0-10 scale with 0 being none and 10 being the worst. He did not rate his anxiety on the scale, but s tates that he "wants to be able to relax." States that his mood "could be better." Review of Systems Musculoskeletal: Denies: joint pain, myalgia Psychiatric: Reports: depression, anxiety, abnormal sleep pattern (works 3rd shift), auditory hallucinations (last heard yesterday), confusion. Denies: suicidal ideation, change in appetite, homicidal ideation, visual hallucinations Results - Vital Signs Vital Signs: Temp Pulse Resp BP Pulse Ox 97.9 F 47 16 117/79 99 10/12/18 20:44 10/12/18 20:44 10/12/18 20:44 10/12/18 20:44 10/12/18 20:44 Assessment and Plan (1) Schizophrenia Current visit: Yes Status: Chronic Plan: Continue hospitalization, Close observation, Suicide Precautions per unit protocol, Encourage participation in unit milieu, Group Therapy, Monitor sleep, Monitor appetite Additional Plan: 1. Continue Zyprexa Zydis 10mg qhs. Denies any current side effects. 2. Will also start Buspar 5mg TID for anxiety. 3. Encourage group participation. 4. Will continue to monitor while on the unit. 5. Anticipate discharge when more psychiatrically stable and medications are optimized. 6. Patient in agreement with the treatment plan. Risks, benefits, side effects, alternatives discussed w/pt: Yes Patient agreeable to treatment: Yes Qualifiers: Schizophrenia type: unspecified Qualified Code(s): F20.9 - Schizophrenia, unspecified (2) Depression Current visit: No Status: Acute Plan: Continue hospitalization, Close observation, Suicide Precautions per unit protocol, Encourage participation in unit milieu, Group Therapy, Monitor sleep, Monitor appetite Additional Plan: Please see above plan. Qualifiers: Depression Type: major depressive disorder Major depression recurrence: recurrent Active/Remission status: currently active Major depression episode severity: moderate Qualified Code(s): F33.1 - Major depressive disorder, recurrent, moderate (3) Acute anxiety Current visit: No Status: Acute Plan: Continue hospitalization, Close observation, Suicide Precautions per unit protocol, Encourage participation in unit milieu, Group Therapy, Monitor sleep, Monitor appetite Additional Plan: Please see above plan. (4) Nicotine dependence Current visit: Yes Status: Acute Additional Plan: Patient states that the gum is not too efficacious. Will switch to the patch. Risks, benefits, side effects, alternatives discussed w/pt: Yes Patient agreeable to treatment: Yes Consult Discharge Plan - Plan Referrals: NONE,PCP [Primary Care Provider] - - Attending Attestation I examined this patient and my medical decision-making was reviewed with the Resident Physician. I agree with the documented findings, disposition and treatment plan as described except to the extent set forth below. Psychiatry Exam - Constitutional Vitals: Temp Pulse Resp BP Pulse Ox 97.9 F 47 16 117/79 99 10/12/18 20:44 10/12/18 20:44 10/12/18 20:44 10/12/18 20:44 10/12/18 20:44 General appearance: age & developmentally appropriate, average Additional observations: Wearing black hat. - Musculoskeletal Gait: normal Station: relaxed Strength & Tone: normal for patient - Psychiatric Patient Orientation: Yes Person, Yes Time, Yes Place, Yes Circumstance Level of alertness: Alert, Follows commands Behavior: calm, cooperative Psychomotor activity: Normal Eye Contact: Maintains Eye Contact Mood Description: Depressed Patient description of mood: "could be better" Affect description: congruent with mood, dysphoric Speech Volume: Normal Speech pattern: normal rate, normal rhythm, normal tone, appropriate, clear, coherent Language & Vocabulary: consistent with education Thought Process: Intact, Slowed Thinking (answers questions slowly) Thought Content: No Suicidal ideation, No Homicidal ideation Perceptual Disturbances: Yes Reacting to internal stimuli (denies AH/VH right now, but may be reacting), Yes Auditory hallucinations (last heard last night), No Visual hallucinations Attention Span Ability: Capable of Focused Attention, Capable of Sustained Attention Memory Description: Grossly Intact Patient Reliability: Reliable Historian Fund of knowledge: Yes average Intelligence Estimate: Average Judgment: Fair Insight: Partial
[2018-10-13] MEDS: Nicotine 21 MG PATCH.TD24 TD SCH (16:33)
[2018-10-13] MEDS: traZODone 50 MG TABLET PO PRN (21:24)
[2018-10-13] MEDS: OLANZapine 10 MG TAB.RAPDIS PO SCH (21:24)
[2018-10-14] MEDS: traZODone 50 MG TABLET PO PRN ×2 (01:39→21:34)
[2018-10-14] MEDS: Nicotine 21 MG PATCH.TD24 TD SCH (08:56)
--- NOTE | 2018-10-14 09:37 | Psychiatry Progress Note ---
Date of Encounter: 10/14/18 Time of Encounter: 09:15 Subjective Interval history: Mr. Uribe is a 38-year-old male with a history of schizophrenia who was admitted with auditory hallucinations of his ex-girlfriend's voice. Patient states that he has still hearing her voice, but the auditory hallucinations do not tell him to hurt himself. He states that they are "just tones, maybe neighbors." When this provider approached, patient was sitting in day room reading a Bible. When asked if the patient reads the Bible at home, he states that he does sometimes. Patient did not sleep well last night and nurse notes indicate that he was pacing the halls. He was given trazodone at 1:39 AM, which she states helped. It is also important to note that the patient usually works third shift. Patient states that he had anxiety when he woke up that he is now "calming down." He states that he does "not really" have depression today. Denies any problems with appetite. States that the medications may be making him "edgy," but also admits this may be due to lack of sleep. Patient denies suicidal ideation or homicidal ideation, but does admit to being frustrated about being asked this by everybody on the unit. Patient's pulse has consistently been in the high 40s. Does not appear to be symptomatic. Review of Systems Psychiatric: Reports: anxiety, abnormal sleep pattern (works 3rd shift), auditory hallucinations, irritability. Denies: suicidal ideation, change in appetite, homicidal ideation, visual hallucinations Results - Vital Signs Vital Signs: Temp Pulse Resp BP Pulse Ox 98.1 F 56 16 126/75 98 10/13/18 21:00 10/13/18 21:00 10/13/18 21:00 10/13/18 21:00 10/13/18 21:00 Assessment and Plan (1) Schizophrenia Current visit: Yes Status: Chronic Plan: Continue hospitalization, Close observation, Suicide Precautions per unit protocol, Encourage participation in unit milieu, Group Therapy, Monitor sleep, Monitor appetite Additional Plan: 1. Increase Zyprexa Zydis to 15mg qhs to help with auditory hallucinations. Will also help with patient's sleep. 2. Continue Buspar for anxiety. 3. Encourage group participation. Patient has been participating and hanging out in the day room. 4. Will continue to monitor while on the unit. 5. Anticipate discharge when more psychiatrically stable and medications are optimized. 6. Patient in agreement with the treatment plan. Risks, benefits, side effects, alternatives discussed w/pt: Yes Patient agreeable to treatment: Yes Qualifiers: Schizophrenia type: unspecified Qualified Code(s): F20.9 - Schizophrenia, unspecified (2) Bradycardia Current visit: Yes Status: Acute Additional Plan: 1. Continue vitals each shift. 2. Obtain one set of orthostatic vitals. 3. Will continue to monitor. (3) Depression Current visit: No Status: Acute Additional Plan: Please see above plan. Qualifiers: Depression Type: major depressive disorder Major depression recurrence: recurrent Active/Remission status: currently active Major depression episode severity: moderate Qualified Code(s): F33.1 - Major depressive disorder, recurrent, moderate (4) Acute anxiety Current visit: No Status: Acute Additional Plan: Please see above plan. (5) Nicotine dependence Current visit: Yes Status: Acute Additional Plan: Continue Nicotine patch. Risks, benefits, side effects, alternatives discussed w/pt: Yes Patient agreeable to treatment: Yes Consult Discharge Plan - Plan Referrals: NONE,PCP [Primary Care Provider] - - Attending Attestation I examined this patient and my medical decision-making was reviewed with the Resident Physician. I agree with the documented findings, disposition and treatment plan as described except to the extent set forth below. Psychiatry Exam - Constitutional Vitals: Temp Pulse Resp BP Pulse Ox 98.1 F 56 16 126/75 98 10/13/18 21:00 10/13/18 21:00 10/13/18 21:00 10/13/18 21:00 10/13/18 21:00 General appearance: age & developmentally appropriate, average Additional observations: Wearing black hat. Has a blanket wrapped around his shoulders. - Musculoskeletal Gait: normal Station: relaxed Strength & Tone: normal for patient - Psychiatric Patient Orientation: Yes Person, Yes Time, Yes Place, Yes Circumstance Level of alertness: Alert, Follows commands Behavior: calm, cooperative Psychomotor activity: Normal Eye Contact: Maintains Eye Contact Mood Description: Euthymic/stable Patient description of mood: "Alright, not too bad" Affect description: congruent with mood, euthymic Speech Volume: Normal Speech pattern: normal rate, normal rhythm, normal tone, clear, coherent Language & Vocabulary: consistent with education Thought Process: Intact, Linear, Goal Oriented Thought Content: Yes Intact, No Suicidal ideation, No Homicidal ideation Perceptual Disturbances: No Reacting to internal stimuli, Yes Auditory hallucinations, No Visual hallucinations Attention Span Ability: Capable of Focused Attention, Capable of Sustained Attention (Reading the Bible) Memory Description: Grossly Intact Patient Reliability: Reliable Historian Fund of knowledge: Yes average Intelligence Estimate: Average Judgment: Fair Insight: Partial
[2018-10-14] MEDS: OLANZapine 10 MG TAB.RAPDIS PO SCH (21:34)
[2018-10-14] MEDS: OLANZapine 5 MG TAB.RAPDIS PO SCH (21:34)
[2018-10-14] MEDS: hydrOXYzine pamoate 25 MG CAPSULE PO PRN (21:34)
[2018-10-15] MEDS: Nicotine 21 MG PATCH.TD24 TD SCH (10:03)
--- NOTE | 2018-10-15 10:28 | Psychiatry Progress Note ---
Date of Encounter: 10/15/18 Time of Encounter: 09:00 Subjective Interval history: Patient is a 38-year-old male who was admitted for auditory hallucinations. Patient states that his mood is "pretty good" but also admits to feeling "a little down." He also admits to feeling anxious. He did have interrupted sleep last night, but he attributes this to getting up to urinate several times throughout the night. He has been drinking more water than usual because he is experiencing dry mouth as a side effect. Denies any problems with appetite. Denies suicidal ideation and homicidal ideation. Denies auditory hallucinations today, but did hear them yesterday. As mentioned above patient is experiencing dry mouth, and also restlessness and anxiety. Patient denies any lightheadedness. He does admit to feeling slightly dizzy when going from sitting to standing, but this is only occasional. No abnormal movements noted. Patient states that his mom came to visit yesterday and that it went pretty well. Patient's 72 hour hold is up today, but the patient signed in voluntarily. Review of Systems Psychiatric: Reports: depression, anxiety, abnormal sleep pattern (works 3rd shift), auditory hallucinations (Last heard yesterday). Denies: suicidal ideation, change in appetite, homicidal ideation, visual hallucinations Results - Vital Signs Vital Signs: Temp Pulse Resp BP Pulse Ox 97.8 F 52 18 116/75 96 10/15/18 09:00 10/15/18 09:00 10/15/18 09:00 10/15/18 09:00 10/15/18 09:00 Assessment and Plan (1) Schizophrenia Current visit: Yes Status: Chronic Plan: Continue hospitalization, Close observation, Suicide Precautions per unit protocol, Encourage participation in unit milieu, Group Therapy, Monitor sleep, Monitor appetite Additional Plan: 1. Continue Zyprexa Zydis 15mg qhs. Will also help with patient's sleep. 2. Continue Buspar for anxiety. 3. Encourage group participation. Patient has been participating and hanging out in the day room. 4. Will continue to monitor while on the unit. 5. Patient's 72 hour hold was up today, but patient signed in voluntarily. Would like to monitor the patient for a few more days, though we anticipate discharge by the end of the week. Patient in agreement with this treatment plan because his main goal is medication optimization. 6. Patient in agreement with the treatment plan. Risks, benefits, side effects, alternatives discussed w/pt: Yes Patient agreeable to treatment: Yes Qualifiers: Schizophrenia type: unspecified Qualified Code(s): F20.9 - Schizophrenia, unspecified (2) Bradycardia Current visit: Yes Status: Acute Additional Plan: 1. Continue vitals each shift. Pulse was 69 last night and 52 this morning. 2. Obtain one set of orthostatic vitals. 3. Will continue to monitor. (3) Depression Current visit: No Status: Acute Additional Plan: Please see above plan. Qualifiers: Depression Type: major depressive disorder Major depression recurrence: recurrent Active/Remission status: currently active Major depression episode severity: moderate Qualified Code(s): F33.1 - Major depressive disorder, recurrent, moderate (4) Acute anxiety Current visit: No Status: Acute Additional Plan: Please see above plan. (5) Nicotine dependence Current visit: Yes Status: Acute Additional Plan: Continue Nicotine patch. Risks, benefits, side effects, alternatives discussed w/pt: Yes Patient agreeable to treatment: Yes Consult Discharge Plan - Plan Referrals: NONE,PCP [Primary Care Provider] - - Attending Attestation I examined this patient and my medical decision-making was reviewed with the Resident Physician. I agree with the documented findings, disposition and treatment plan as described except to the extent set forth below. Psychiatry Exam - Constitutional Vitals: Temp Pulse Resp BP Pulse Ox 97.8 F 52 18 116/75 96 10/15/18 09:00 10/15/18 09:00 10/15/18 09:00 10/15/18 09:00 10/15/18 09:00 General appearance: age & developmentally appropriate, well-groomed, average Additional observations: Wearing black hat and unit pajamas. - Musculoskeletal Gait: normal Station: relaxed Strength & Tone: normal for patient - Psychiatric Patient Orientation: Yes Person, Yes Time, Yes Place, Yes Circumstance Level of alertness: Alert, Follows commands Behavior: calm, cooperative Psychomotor activity: Normal (No abnormal movements noted) Eye Contact: Maintains Eye Contact Mood Description: Euthymic/stable Patient description of mood: "Pretty good" Affect description: congruent with mood Speech Volume: Normal Speech pattern: normal rate, normal rhythm, normal tone, clear, coherent Language & Vocabulary: consistent with education Thought Process: Intact, Goal Oriented (Frequently discusses his goal of having his medications optimized) Thought Content: No Suicidal ideation, No Homicidal ideation Perceptual Disturbances: No Reacting to internal stimuli, Yes Auditory hallucinations (Last heard yesterday), No Visual hallucinations Attention Span Ability: Capable of Focused Attention Memory Description: Grossly Intact Patient Reliability: Reliable Historian Fund of knowledge: Yes average Intelligence Estimate: Average Judgment: Fair Insight: Partial
[2018-10-15] MEDS: traZODone 50 MG TABLET PO PRN (21:14)
[2018-10-15] MEDS: OLANZapine 5 MG TAB.RAPDIS PO SCH (21:14)
[2018-10-15] MEDS: hydrOXYzine pamoate 25 MG CAPSULE PO PRN (21:14)
[2018-10-15] MEDS: OLANZapine 10 MG TAB.RAPDIS PO SCH (21:14)
[2018-10-16] MEDS ORDERED: traZODone 50 MG TABLET PO ONE (00:57)
--- NOTE | 2018-10-16 08:39 | Discharge Summary ---
Date of Encounter: 10/16/18 Time of Encounter: 08:19 Diagnosis - Discharge Diagnosis (1) Schizophrenia Status: Chronic Qualifiers: Schizophrenia type: unspecified Qualified Code(s): F20.9 - Schizophrenia, unspecified (2) Bradycardia Status: Acute (3) Depression Status: Acute Qualifiers: Depression Type: major depressive disorder Major depression recurrence: recurrent Active/Remission status: currently active Major depression episode severity: moderate Qualified Code(s): F33.1 - Major depressive disorder, recurrent, moderate (4) Acute anxiety Status: Acute Medications - Discharge Medications Prescriptions: Buspirone HCl [Buspar] 5 mg PO TID #90 tablet hydrOXYzine pamoate [HydrOXYzine Pamoate] 25 mg PO TID PRN #60 capsule PRN Reason: Anxiety OLANZapine [Zyprexa Zydis] 10 mg PO HS #30 tab.rapdis OLANZapine [Zyprexa Zydis] 5 mg PO HS #30 tab.rapdis traZODone [TraZODone] 50 mg PO HS PRN #30 tablet PRN Reason: Insomnia Buspirone HCl [Buspar] 5 mg PO TID #90 tablet 10/16/18 [Rx] OLANZapine [Zyprexa Zydis] 5 mg PO HS #30 tab.rapdis 10/16/18 [Rx] OLANZapine [Zyprexa Zydis] 10 mg PO HS #30 tab.rapdis 10/16/18 [Rx] hydrOXYzine pamoate [HydrOXYzine Pamoate] 25 mg PO TID PRN #60 capsule 10/16/18 [Rx] traZODone [TraZODone] 50 mg PO HS PRN #30 tablet 10/16/18 [Rx] Allergy/AdvReac Type Severity Reaction Status Date / Time bupropion [From Wellbutrin] AdvReac See Verified 10/12/18 10:44 Comments Results Procedures and tests throughout hospitalization: Completed Lab Orders Category Date Time Status Blood Alcohol [Ethanol] Stat Lab 10/11/18 13:28 Completed Ethanol Stat Lab 10/11/18 12:25 Completed Provider Date of admission: 10/11/18 15:51 Primary care physician: PCP NONE Discharging clinician: Christine Lara Psychiatry Exam - Constitutional Vitals: Temp Pulse Resp BP Pulse Ox 98.2 F 62 18 113/69 97 10/15/18 19:59 10/15/18 19:59 10/15/18 19:59 10/15/18 19:59 10/15/18 19:59 General appearance: age & developmentally appropriate, well-groomed, well- nourished - Musculoskeletal Gait: normal Station: relaxed Strength & Tone: normal for patient - Psychiatric Patient Orientation: Yes Person, Yes Time, Yes Place Level of alertness: Alert Behavior: calm, cooperative Psychomotor activity: Normal Eye Contact: Maintains Eye Contact Mood Description: Euthymic/stable Patient description of mood: "good" Affect description: congruent with mood, full range Speech Volume: Normal Speech pattern: normal rate, normal rhythm, normal tone, fluent, spontaneous Language & Vocabulary: consistent with education Thought Process: Linear, Goal Oriented Thought Content: No Suicidal ideation, No Homicidal ideation, No Overt delusions Perceptual Disturbances: No Auditory hallucinations, No Visual hallucinations Attention Span Ability: Capable of Focused Attention Memory Description: Grossly Intact Patient Reliability: Reliable Historian Fund of knowledge: Yes abstraction ability, Yes aware of current events Intelligence Estimate: Average Judgment: Good Insight: Full Hospital Course Hospital course: Mr. Uribe is a 38 year old male who was admitted for depression and auditory hallucinations which caused him to tear up the drywall in his home loking for the source of the voice which he felt was his ex-girlfriend. He was started on zyprexa for psychosis as well as buspar for anxiety. Patient was educated of diagnosis and the risk-benefit side effects of this alternative treatment options and was monitored for responsiveness and side effects. Mood anxiety sleep and appetite interest improved as did future orientation. Self-harm thoughts subsided, thinking cleared, psychosis resolved, and mood stabilized. Patient was able to attend both individual and group therapy sessions as well as meet with the psychiatrist daily and urged to discuss any medication or treatment issues or other concerns. The patient was educated primarily by verbal means about their diagnosis and manifestations in their life. The option for treatment including group and individual therapy programming was offered to the patient in addition to the use of medications with all their potential risks, benefits, and side effects as well as the risks of not taking medication and non-adhereance were discussed with the patient at length. The patient was given the opportunity to ask questions and was noted to participate in the treatment in the planning process. The patient felt ready and eager to be discharged from the inpatient psychiatric unit to continue on with treatment as an outpatient. The patient agreed that is they were safe for this disposition. The patient was considered to be able to participate in informed consent and decision making with respect to medical, legal, and financial issues of the time of discharge. At the time of discharge the patient adamantly denied any concerns for lethality including suicidal or homicidal thoughts ideations or plans and was future oriented toward ongoing mental health care, medical follow- up and sobriety. Time spent discussing smoking cessation with patient: 3 to 10 minutes Does patient wish to continue nicotine replacement upon disc: No - Time Spent with Patient Total time spent providing and/or coordinating discharge services: 25 Less than 30 minutes Specific discharge activities: Interval history reviewed. Available labs reviewed . Psychotherapy provided. Patient had an opportunity to ask questions and address concerns. Patient was in agreement with the treatment plan. The risks benefits and side effects of medications were discussed with the patient, including alternatives and treatment. The patient was educated on the abstaining from any alcohol or illicit substances, following up with all scheduled appointments, and taking all medications as prescribed. Assessment and Plan - Patient/Caregiver Discharge Instructions Activity: resume usual activities as tolerated Diet: regular diet Additional Instructions: Continue current medications. Follow up with outpatient mental health. Encourage continued therapy in a group or individual setting. The patient was discharged to home. - Follow up Plan Follow up with: [facility] [Outside] Functional capacity at discharge: independent ambulation Overall status at discharge: Stable Disposition: Home, Self-Care Quality - Multiple Antipsychotics Patient discharged on 2 or more antipsychotic medications: No Procedures - Procedures Procedures: Medication Management, Crisis Stabilization, Supportive Therapy, Group Therapy, Psychoeducational Therapy
[2018-10-16] MEDS: Nicotine 21 MG PATCH.TD24 TD SCH (08:40)
[2018-10-16 09:21] VITALS: BP 116/73
== END 2018-10-16 15:30 | disposition home or self-care (01) | DRG 885 ==
LOC: EMEROOARM 12:05 → SUATTDRO 15:51 → 1ANU 15:51
PROVIDERS: ADMIT Psychiatry & Neurology Psychiatry; ATTEND Psychiatry & Neurology Psychiatry

== ENCOUNTER 2019-02-04 08:46 | Observation (INO) ==
[2019-02-04] MEDS ORDERED: Ziprasidone 10 MG in Water for inj. (sterile) 0.5 ML IM ONE (09:16)
[2019-02-04] MEDS ORDERED: Water for inj. (sterile) 10 ML ONE (09:17)
[2019-02-04] MEDS ORDERED: Ziprasidone 20 MG/VIAL VIAL IM ONE (09:17)
[2019-02-04 09:58] LABS: Basophils % 0.3 %; Eosinophils # 0.2 K/mcL (0.0-0.6); Eosinophils % 1.5 %; Hematocrit 41.8 % (37.5-50.1); Hemoglobin 14.7 g/dL (12.9-16.9); Immature Granulocytes % 0.7 % (0-4); Lymphocytes # 1.7 K/mcL (0.6-4.6); Mean Corpuscular HGB Conc 35.2 g/dL (31.6-35.5); Mean Corpuscular Hemoglobin 31.8 pg (28.0-33.3); Mean Corpuscular Volume 90.5 fL (83.0-100.0); Mean Platelet Volume 10.6 fL (9.4-12.4); Monocytes # 0.7 K/mcL (0.0-1.3); Monocytes % 6.6 %; Neutrophils # 8.1 K/mcL (1.6-8.9); Platelet Count 222 K/mcL (140-400); Red Blood Count 4.62 M/mcL (4.19-5.50); Red Cell Distribution Width 11.7 % (11.5-14.5); Segmented Neutrophils % 74.9 %; White Blood Count 10.9 K/mcL (4.3-11.1)
[2019-02-04 10:15] LABS: Amphetamine Screen,Urine Negative ng/mL (Cutoff=1000); Barbiturate Screen,Urine Negative ng/mL (Cutoff=200); Benzodiazepines Screen,Urine Negative ng/mL (Cutoff=200); Cannabinoid Screen,Urine Positive ng/mL (Cutoff = 50); Cocaine Screen,Urine Negative ng/mL (Cutoff= 300); Opiate Screen,Urine Negative ng/mL (Cutoff=300); Phencyclidine Screen,Urine Negative ng/mL (Cutoff=25)
[2019-02-04 10:16] LABS: Acetaminophen < 10 mcg/mL (10-20); Alanine Aminotransferase 22 Units/L (7-52); Albumin 4.6 g/dL (3.5-5.7); Albumin/Globulin Ratio 1.8 (1.1-2.2); Alkaline Phosphatase 55 Units/L (34-104); Aspartate Amino Transferase 41 Units/L (13-39); BUN/Creatinine Ratio 12 (6-26); Bilirubin,Direct 0.2 mg/dL (0.0-0.2); Bilirubin,Indirect 0.5 mg/dL (0.0-1.2); Bilirubin,Total 0.7 mg/dL (0.3-1.0); Blood Urea Nitrogen 9 mg/dL (6-20); Calcium 9.4 mg/dL (8.6-10.3); Carbon Dioxide 27 mEq/L (23-29); Chloride 95 mEq/L (98-107); Ethanol < 10 mg/dL (Less than 10); Globulin 2.5 g/dL (2.4-3.5); Glucose 113 mg/dL (70-105); Osmolality,Calculated 283 (280-300); Potassium 3.5 mEq/L (3.5-5.1); Salicylate < 2.5 mg/dL (15.0-30.0); Sodium 137 mEq/L (136-145); Total Protein 7.1 g/dL (6.4-8.9); eGFR For African Americans > 60 (> 60); eGFR For Non-African Americans > 60 (> 60)
[2019-02-04] MEDS ORDERED: *HR* LORazepam 1 MG TABLET PO PRN (12:26)
[2019-02-04] MEDS ORDERED: *HR* LORazepam 2 MG/ML VIAL IM PRN (12:26)
[2019-02-04] MEDS ORDERED: Haloperidol Lactate 5 MG/ML VIAL IM PRN (12:26)
[2019-02-04] MEDS ORDERED: MOM Conc 10 ML UD.LIQ PO PRN (12:26)
[2019-02-04] MEDS: traZODone 50 MG TABLET PO PRN (21:49)
[2019-02-04] MEDS: Nicotine 21 MG PATCH.TD24 TD SCH (21:49)
[2019-02-04] MEDS: hydrOXYzine pamoate 25 MG CAPSULE PO PRN (21:49)
[2019-02-05] MEDS: Nicotine 21 MG PATCH.TD24 TD SCH (08:43)
[2019-02-05 14:29] LABS: Basophils % 0.4 %; Eosinophils # 0.5 K/mcL (0.0-0.6); Eosinophils % 5.5 %; Hematocrit 43.8 % (37.5-50.1); Immature Granulocytes % 0.2 % (0-4); Lymphocytes # 2.1 K/mcL (0.6-4.6); Lymphocytes % 25.8 %; Mean Corpuscular HGB Conc 34.2 g/dL (31.6-35.5); Mean Corpuscular Hemoglobin 32.1 pg (28.0-33.3); Mean Corpuscular Volume 93.6 fL (83.0-100.0); Mean Platelet Volume 10.7 fL (9.4-12.4); Monocytes # 0.6 K/mcL (0.0-1.3); Monocytes % 7.6 %; Platelet Count 237 K/mcL (140-400); Red Blood Count 4.68 M/mcL (4.19-5.50); Red Cell Distribution Width 11.9 % (11.5-14.5); Segmented Neutrophils % 60.5 %; White Blood Count 8.3 K/mcL (4.3-11.1)
[2019-02-05 14:47] LABS: Alanine Aminotransferase 23 Units/L (7-52); Albumin 4.4 g/dL (3.5-5.7); Albumin/Globulin Ratio 1.7 (1.1-2.2); Alkaline Phosphatase 62 Units/L (34-104); Aspartate Amino Transferase 38 Units/L (13-39); BUN/Creatinine Ratio 20 (6-26); Bilirubin,Total 0.5 mg/dL (0.3-1.0); Blood Urea Nitrogen 19 mg/dL (6-20); Calcium 9.3 mg/dL (8.6-10.3); Carbon Dioxide 31 mEq/L (23-29); Chloride 102 mEq/L (98-107); Chol/HDL Ratio 3.1 (0-4.9); Cholesterol 153 mg/dL (< 200); Globulin 2.6 g/dL (2.4-3.5); Glucose 90 mg/dL (70-105); HDL Cholesterol 49 mg/dL (40-59); LDL Cholesterol,Calculated 72 mg/dL (0-99); Osmolality,Calculated 290 (280-300); Potassium 3.9 mEq/L (3.5-5.1); Sodium 139 mEq/L (136-145); Triglycerides 162 mg/dL (< 150); eGFR For African Americans > 60 (> 60); eGFR For Non-African Americans > 60 (> 60)
[2019-02-05 15:03] LABS: Estimated Average Glucose 117 mg/dl
[2019-02-05] MEDS: traZODone 50 MG TABLET PO PRN (21:26)
[2019-02-05] MEDS: hydrOXYzine pamoate 25 MG CAPSULE PO PRN (21:26)
[2019-02-06] MEDS: Nicotine 21 MG PATCH.TD24 TD SCH (09:47)
[2019-02-06] MEDS: traZODone 50 MG TABLET PO PRN (21:37)
[2019-02-07] MEDS: Nicotine 21 MG PATCH.TD24 TD SCH (09:36)
[2019-02-07] MEDS: hydrOXYzine pamoate 25 MG CAPSULE PO PRN (20:58)
[2019-02-07] MEDS: traZODone 50 MG TABLET PO PRN (20:58)
[2019-02-08] MEDS: Nicotine 21 MG PATCH.TD24 TD SCH (10:28)
[2019-02-08] MEDS: hydrOXYzine pamoate 25 MG CAPSULE PO PRN (20:51)
[2019-02-08] MEDS: traZODone 50 MG TABLET PO PRN (20:51)
[2019-02-09] MEDS: Nicotine 21 MG PATCH.TD24 TD SCH (09:40)
[2019-02-09 09:59] VITALS: BP 112/68
== END 2019-02-09 17:40 | disposition home or self-care (01) ==
LOC: EMEROOARM 08:46 → INTOOBSV 12:00 → 1ANU 12:00
PROVIDERS: ADMIT Psychiatry & Neurology Psychiatry; ATTEND Psychiatry & Neurology Psychiatry